=== PATIENT | female | born 2000 | race American Indian/Alaskan Native ===

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

== ENCOUNTER 2021-01-04 18:30 | Emergency (ER) | payer MEDICAID ==
[2021-01-04 21:43] VITALS: BP 119/88
[2021-01-04] MEDS ORDERED: LIDOCAINE-MPF (1%) 10 MG/1 ML VIAL 5 ML INFILTRATI ONE (22:07)
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
== END 2021-01-04 22:35 | disposition home or self-care (01) ==
LOC: ED 18:30
DX: N72 Inflammatory disease of cervix uteri (principal); N76.0 Acute vaginitis; Z79.899 Other long term (current) drug therapy
CPT/HCPCS: 87210; 87591; 96372; 99283; J0696